=== PATIENT | female | born 1990 | race Caucasian/White ===

== ENCOUNTER 2019-10-29 06:00 | Emergency (ER) | payer OTHER, MEDICAID ==
[~2019-10-29] VITALS: Ht 165.1 cm; Wt 94.8 kg
[2019-10-29] MEDS ORDERED: ZOLOFT100 MG PO (06:22)
[2019-10-29] MEDS ORDERED: HYDROCODONE-ACE15 ML PO (06:50)
[2019-10-29] MEDS ORDERED: AZITHROMYCIN 2250 MG PO (06:50)
[2019-10-29 06:56] VITALS: BP 145/75
== END 2019-10-29 06:57 | disposition home or self-care (01) ==
LOC: M.ERS 06:00
DX: Z20.818 Contact with and (suspected) exposure to other bacterial communicable diseases (principal)